=== PATIENT | male | born 1950 | race Caucasian/White ===

== ENCOUNTER 2021-06-06 16:30 | Inpatient (IN) ==
[2021-06-06] MEDS ORDERED: Naloxone 0.4 MG/ML INJ IVP PRN (19:36)
[2021-06-06] MEDS ORDERED: D5% in Water 1,000 ML IVC PRN (19:38)
[2021-06-06] MEDS ORDERED: Dextrose 4 GM Chewable Tablets PO PRN ×2 (19:38)
[2021-06-06] MEDS ORDERED: *HR* Dextrose 50 % in Water (Syg) 50 ML SYRINGE IVP PRN (19:38)
[2021-06-06] MEDS: Ondansetron 4 MG/2 ML VIAL IVP PRN (22:21)
[2021-06-07] MEDS: Insulin LISPRO 300 UNITS/3 ML VIAL SUBQ SCH ×4 (01:14→16:49)
[2021-06-07 01:27] LABS: Albumin 2.8 g/dL (3.5-5.7); Albumin/Globulin Ratio 1.5 (1.1-2.2); Bilirubin,Total 0.4 mg/dL (0.3-1.0); Calcium 7.5 mg/dL (8.6-10.3); Globulin 1.9 g/dL (2.4-3.5); Potassium 4.2 mEq/L (3.5-5.1); Total Protein 4.7 g/dL (6.4-8.9)
[2021-06-07 01:32] LABS: Basophils % 0.2 %; Lymphocytes % 6.9 %
[2021-06-07 01:34] LABS: Basophils # 0.1 K/mcL (0.0-0.2); Hematocrit 41.5 % (37.5-50.1); Immature Granulocytes % 1.5 % (0-4); Lymphocytes # 2.2 K/mcL (0.6-4.6); Mean Corpuscular HGB Conc 33.7 g/dL (31.6-35.5); Mean Corpuscular Hemoglobin 25.7 pg (28.0-33.3); Mean Corpuscular Volume 76.1 fL (83.0-100.0); Monocytes # 2.1 K/mcL (0.0-1.3); Monocytes % 6.4 %; Platelet Count 587 K/mcL (140-400); Red Blood Count 5.45 M/mcL (4.19-5.50); Red Cell Distribution Width 18.7 % (11.5-14.5)
[2021-06-07 01:39] LABS: Neutrophils # 27.5 K/mcL (1.6-8.9); White Blood Count 32.3 K/mcL (4.3-11.1)
[2021-06-07 02:03] LABS: INR 1.1; Prothrombin Time 11.7 Seconds (9.4-12.1)
[2021-06-07 02:06] LABS: Activated Partial Thrombo Time 25.6 Seconds (26.0-36.0)
[2021-06-07 02:39] LABS: Bilirubin,Urine Negative (Negative); Blood,Urine Moderate (Negative); Clarity,Urine Turbid (Clear); Color,Urine Yellow (Yellow); Glucose,Urine (UA) Normal (Normal); Hyaline Casts,Urine Many per lpf (None Seen); Ketones,Urine Negative (Negative); Leukocyte Esterase,Urine Large (Negative); Mucus,Urine Few per lpf (None-Few); Nitrite,Urine Negative (Negative); PH,Urine 7.5 pH Units (5.0-8.0); Protein,Urine 70 mg/dL (Neg-Trace); RBC,Urine 15-30 per hpf (0-3); Specific Gravity,Urine 1.024 (1.010-1.025); Squamous Epithelial Cell,Urine Few per hpf (None-Few); Urobilinogen,Urine Normal (Normal); WBC,Urine 50-100 per hpf (0-3)
[2021-06-07 03:06] LABS: Platelet Estimate Increased (Normal)
[2021-06-07 03:07] LABS: Anisocytosis 1+ (Not Present)
[2021-06-07 04:44] LABS: Sodium, Urine 12.9 mEq/L
[2021-06-07 04:57] LABS: Protein/Creatinine Ratio,Urine 0.54 mg/mg (0.00-0.20)
[2021-06-07 05:23] LABS: Basophils % 0.2 %; Hemoglobin 14.1 g/dL (12.9-16.9); Monocytes % 6.7 %
[2021-06-07 05:25] LABS: Basophils # 0.1 K/mcL (0.0-0.2); Hematocrit 41.6 % (37.5-50.1); Immature Granulocytes % 1.1 % (0-4); Lymphocytes # 2.7 K/mcL (0.6-4.6); Lymphocytes % 8.4 %; Mean Corpuscular HGB Conc 33.9 g/dL (31.6-35.5); Mean Corpuscular Hemoglobin 25.5 pg (28.0-33.3); Mean Corpuscular Volume 75.4 fL (83.0-100.0); Mean Platelet Volume 10.1 fL (9.4-12.4); Monocytes # 2.1 K/mcL (0.0-1.3); Neutrophils # 26.6 K/mcL (1.6-8.9); Platelet Count 607 K/mcL (140-400); Red Blood Count 5.52 M/mcL (4.19-5.50); Red Cell Distribution Width 18.6 % (11.5-14.5); Segmented Neutrophils % 83.6 %
[2021-06-07 05:35] LABS: White Blood Count 31.8 K/mcL (4.3-11.1)
[2021-06-07 05:52] LABS: Calcium 7.9 mg/dL (8.6-10.3); Potassium 4.2 mEq/L (3.5-5.1)
[2021-06-07] MEDS: Pantoprazole 40 MG VIAL IVP SCH ×2 (06:16→17:24)
[2021-06-07] MEDS: Ondansetron 4 MG/2 ML VIAL IVP PRN ×3 (06:21→23:27)
[2021-06-07 06:45] LABS: Anisocytosis 1+ (Not Present); Platelet Estimate Increased (Normal)
[2021-06-07] MEDS ORDERED: 0.9 % Sodium Chloride 1,000 ML IVC SCH ×2 (08:00→18:24)
[2021-06-07 13:40] LABS: Potassium 4.1 mEq/L (3.5-5.1)
[2021-06-07] MEDS: MetroNIDAZOLE 500 MG/100 ML 500 MG/100 ML BAG IVPB SCH ×2 (16:05→23:27)
[2021-06-07 16:19] LABS: Calcium 7.8 mg/dL (8.6-10.3); Potassium 4.3 mEq/L (3.5-5.1)
[2021-06-07 16:28] LABS: Hemoglobin 15.5 g/dL (12.9-16.9)
[2021-06-07] MEDS: Sucralfate 1 GM TABLET PO SCH (20:23)
[2021-06-07] MEDS: Budesonide/Formoterol 160/4.5 1 PUFF INH IH SCH (20:42)
[2021-06-07 21:16] LABS: Calcium 7.5 mg/dL (8.6-10.3); Potassium 4.3 mEq/L (3.5-5.1)
[2021-06-08 00:59] LABS: Mean Corpuscular HGB Conc 34.5 g/dL (31.6-35.5); Mean Corpuscular Hemoglobin 25.9 pg (28.0-33.3); Mean Platelet Volume 9.6 fL (9.4-12.4)
[2021-06-08 01:00] LABS: Hematocrit 44.3 % (37.5-50.1); Hemoglobin 15.3 g/dL (12.9-16.9); Nucleated Red Blood Cells 0.1 /100 WBC (0); Platelet Count 559 K/mcL (140-400); Red Blood Count 5.91 M/mcL (4.19-5.50)
[2021-06-08 01:05] LABS: Prothrombin Time 11.5 Seconds (9.4-12.1)
[2021-06-08 01:10] LABS: White Blood Count 36.3 K/mcL (4.3-11.1)
[2021-06-08 01:18] LABS: Calcium 7.6 mg/dL (8.6-10.3); Magnesium 2.1 mg/dL (1.6-2.6); Phosphorous 5.4 mg/dL (2.7-4.5)
[2021-06-08 01:33] LABS: Hypersegmented Neutrophils Present (Not Present); Lymphocytes # 3.6 K/mcL (0.6-4.6); Monocytes # 2.9 K/mcL (0.0-1.3); Neutrophils # 29.8 K/mcL (1.6-8.9)
[2021-06-08 01:34] LABS: Large Platelets Present (Not Present)
[2021-06-08 01:35] LABS: Platelet Estimate Increased (Normal)
[2021-06-08] MEDS ORDERED: 0.9 % Sodium Chloride 1,000 ML IVC SCH (02:57)
[2021-06-08] MEDS: Pantoprazole 40 MG VIAL IVP SCH ×2 (05:33→18:50)
[2021-06-08] MEDS: Budesonide/Formoterol 160/4.5 1 PUFF INH IH SCH ×2 (07:27→19:49)
[2021-06-08] MEDS: Ondansetron 4 MG/2 ML VIAL IVP PRN ×2 (07:38→20:12)
[2021-06-08] MEDS: Sucralfate 1 GM TABLET PO SCH ×2 (07:38→20:12)
[2021-06-08] MEDS: MetroNIDAZOLE 500 MG/100 ML 500 MG/100 ML BAG IVPB SCH ×3 (07:38→23:50)
[2021-06-08] MEDS: Insulin LISPRO 300 UNITS/3 ML VIAL SUBQ SCH ×3 (07:39→16:22)
[2021-06-08 10:41] LABS: Calcium 7.7 mg/dL (8.6-10.3); Potassium 4.2 mEq/L (3.5-5.1)
[2021-06-08 14:55] LABS: Calcium 7.7 mg/dL (8.6-10.3); Potassium 4.4 mEq/L (3.5-5.1)
[2021-06-08 16:31] LABS: Uric Acid 11.8 mg/dL (2.3-7.6)
[2021-06-08 20:33] LABS: Calcium 7.7 mg/dL (8.6-10.3); Potassium 4.4 mEq/L (3.5-5.1)
[2021-06-08 23:21] LABS: Calcium 7.5 mg/dL (8.6-10.3); Potassium 4.5 mEq/L (3.5-5.1)
[2021-06-09] MEDS: Albumin 25% 25gram/100mL 25 GM/100 ML IV.SOLN IVPB SCH ×4 (00:56→21:33)
[2021-06-09] MEDS ORDERED: Prochlorperazine 10 MG/2 ML VIAL IVP ONE (03:05)
[2021-06-09 05:29] LABS: Mean Corpuscular HGB Conc 34.2 g/dL (31.6-35.5); Mean Platelet Volume 9.7 fL (9.4-12.4); Monocytes % 7.6 %; Nucleated Red Blood Cells 0.1 /100 WBC (0)
[2021-06-09 05:31] LABS: Basophils # 0.1 K/mcL (0.0-0.2); Basophils % 0.2 %; Hemoglobin 16.4 g/dL (12.9-16.9); Immature Granulocytes % 3.5 % (0-4); Lymphocytes # 3.4 K/mcL (0.6-4.6); Lymphocytes % 7.6 %; Mean Corpuscular Hemoglobin 25.9 pg (28.0-33.3); Mean Corpuscular Volume 75.9 fL (83.0-100.0); Monocytes # 3.4 K/mcL (0.0-1.3); Platelet Count 529 K/mcL (140-400); Red Blood Count 6.32 M/mcL (4.19-5.50); Segmented Neutrophils % 81.1 %
[2021-06-09] MEDS: Pantoprazole 40 MG VIAL IVP SCH ×2 (05:35→17:53)
[2021-06-09 05:41] LABS: White Blood Count 44.4 K/mcL (4.3-11.1)
[2021-06-09 06:38] LABS: Platelet Estimate Increased (Normal)
[2021-06-09 06:44] LABS: Complement C3 72 mg/dL (87-200)
[2021-06-09] MEDS: Budesonide/Formoterol 160/4.5 1 PUFF INH IH SCH ×2 (07:57→20:50)
[2021-06-09] MEDS: Insulin LISPRO 300 UNITS/3 ML VIAL SUBQ SCH ×3 (08:15→16:36)
[2021-06-09] MEDS: Sucralfate 1 GM TABLET PO SCH ×2 (10:17→21:33)
[2021-06-09] MEDS: Cefepime HCl 2,000 MG in 0.9 % Sodium Chloride 10 ML IVP SCH (10:17)
[2021-06-09] MEDS: MetroNIDAZOLE 500 MG/100 ML 500 MG/100 ML BAG IVPB SCH ×3 (10:18→21:34)
[2021-06-09 10:24] LABS: Magnesium 2.1 mg/dL (1.6-2.6); Phosphorous 7.8 mg/dL (2.7-4.5)
[2021-06-09 10:30] LABS: Calcium 7.8 mg/dL (8.6-10.3); Potassium 4.7 mEq/L (3.5-5.1)
[2021-06-09] MEDS ORDERED: Sodium Bicarbonate 75 MEQ in 0.45 % Sodium Chloride 1,000 ML IVC SCH (10:45)
[2021-06-09 12:24] LABS: Thyroid Stimulating Hormone 1.368 mcIU/mL (0.340-5.600)
[2021-06-09] MEDS ORDERED: Isovue-370 500 ML BOTTLE IVP ONE (13:16)
[2021-06-09 16:17] LABS: Adenovirus F 40/41 PCR Not detected (Not detect); Astrovirus PCR Not detected (Not detect); C.difficile Toxin A/B Gene PCR Not detected (Not detect); Campylobacter by PCR Not detected (Not detect); Cryptosporidium by PCR Not detected (Not detect); Cyclospora cayetanensis PCR Not detected (Not detect); Entamoeba histolytica PCR Not detected (Not detect); Enteroaggregative E.coli(EAEC) Not detected (Not detect); Enteropathogenic E.coli(EPEC) Not detected (Not detect); Enterotoxigenic E.coli (ETEC) Not detected (Not detect); Norovirus GI/GII PCR Not detected (Not detect); Plesiomonas shigelloides PCR Not detected (Not detect); Rotavirus A PCR Not detected (Not detect); Salmonella PCR Not detected (Not detect); Sapovirus PCR Not detected (Not detect); Shig/EnteroinvasiveE coli EIEC Not detected (Not detect); Shigalike tox-prod E coli STEC Not detected (Not detect); Vibrio PCR Not detected (Not detect); Vibrio cholerae PCR Not detected (Not detect); Yersinia enterocolitica PCR Not detected (Not detect)
[2021-06-09 16:22] LABS: Appearance of Peritoneal Fl CLEAR (Clear); RBC,Peritoneal Fluid 2000 RBC/mcL
[2021-06-09 16:27] LABS: Giardia lamblia PCR DETECTED (Not detect)
[2021-06-09] MEDS: Insulin DETEMIR 100 UNIT/ML X5UNITS SUBQ SCH (16:36)
[2021-06-09 17:02] LABS: Potassium 4.6 mEq/L (3.5-5.1)
[2021-06-09 17:46] LABS: Calcium 7.5 mg/dL (8.6-10.3); Potassium 4.5 mEq/L (3.5-5.1)
[2021-06-09] MEDS: Sodium Bicarbonate 75 MEQ in 0.45 % Sodium Chloride 1,000 ML IVC SCH (17:54)
[2021-06-09 18:26] LABS: Basophils,Peritoneal Fluid 0 %; Eosinophils,Peritoneal Fluid 0 %
[2021-06-09 19:11] LABS: Hepatitis B Surface Antibody < 3.10 mIU/mL
[2021-06-09 19:21] LABS: Hepatitis B Surface Antigen Nonreactive (Nonreactive)
[2021-06-09 19:50] LABS: Hepatitis B Core IgM Nonreactive (Nonreactive); Hepatitis C Virus Antibody Nonreactive (Nonreactive)
[2021-06-09 22:17] LABS: Calcium 7.6 mg/dL (8.6-10.3); Potassium 4.5 mEq/L (3.5-5.1)
[2021-06-10 01:30] LABS: Calcium 7.6 mg/dL (8.6-10.3); Potassium 4.3 mEq/L (3.5-5.1)
[2021-06-10] MEDS: Sodium Bicarbonate 75 MEQ in 0.45 % Sodium Chloride 1,000 ML IVC SCH ×2 (03:19→13:30)
[2021-06-10] MEDS: Albumin 25% 25gram/100mL 25 GM/100 ML IV.SOLN IVPB SCH ×3 (05:03→21:28)
[2021-06-10] MEDS: Pantoprazole 40 MG VIAL IVP SCH ×2 (05:03→16:57)
[2021-06-10] MEDS: MetroNIDAZOLE 500 MG/100 ML 500 MG/100 ML BAG IVPB SCH ×3 (05:04→21:27)
[2021-06-10 05:35] LABS: Basophils # 0.2 K/mcL (0.0-0.2); Basophils % 0.4 %; Hematocrit 37.2 % (37.5-50.1); Immature Granulocytes % 2.8 % (0-4); Lymphocytes # 3.1 K/mcL (0.6-4.6); Mean Corpuscular HGB Conc 34.9 g/dL (31.6-35.5); Mean Corpuscular Hemoglobin 25.9 pg (28.0-33.3); Mean Corpuscular Volume 74.3 fL (83.0-100.0); Mean Platelet Volume 9.9 fL (9.4-12.4); Monocytes # 3.8 K/mcL (0.0-1.3); Monocytes % 8.7 %; Nucleated Red Blood Cells 0.1 /100 WBC (0); Platelet Count 438 K/mcL (140-400); Red Blood Count 5.01 M/mcL (4.19-5.50); Red Cell Distribution Width 17.9 % (11.5-14.5); Segmented Neutrophils % 81.1 %
[2021-06-10 05:36] LABS: Neutrophils # 35.4 K/mcL (1.6-8.9)
[2021-06-10 05:39] LABS: White Blood Count 43.7 K/mcL (4.3-11.1)
[2021-06-10 05:54] LABS: Albumin 2.8 g/dL (3.5-5.7); Bilirubin,Direct 0.2 mg/dL (0.0-0.2); Bilirubin,Indirect 0.5 mg/dL (0.0-1.0); Bilirubin,Total 0.7 mg/dL (0.3-1.0); Globulin 1.4 g/dL (2.4-3.5); Total Protein 4.2 g/dL (6.4-8.9)
[2021-06-10 05:55] LABS: Calcium 7.8 mg/dL (8.6-10.3); Potassium 4.2 mEq/L (3.5-5.1)
[2021-06-10 06:14] LABS: Magnesium 2.1 mg/dL (1.6-2.6); Phosphorous 7.1 mg/dL (2.7-4.5)
[2021-06-10] MEDS: Budesonide/Formoterol 160/4.5 1 PUFF INH IH SCH ×2 (07:25→20:37)
[2021-06-10] MEDS: Cefepime HCl 2,000 MG in 0.9 % Sodium Chloride 10 ML IVP SCH (07:59)
[2021-06-10] MEDS: Insulin DETEMIR 100 UNIT/ML X5UNITS SUBQ SCH (07:59)
[2021-06-10] MEDS: Sucralfate 1 GM TABLET PO SCH ×2 (07:59→21:27)
[2021-06-10] MEDS: Insulin LISPRO 300 UNITS/3 ML VIAL SUBQ SCH ×3 (08:00→16:52)
[2021-06-10 10:16] LABS: Hemoglobin 12.5 g/dL (12.9-16.9)
[2021-06-10 10:53] LABS: Calcium 7.9 mg/dL (8.6-10.3); Potassium 4.2 mEq/L (3.5-5.1)
[2021-06-10 13:26] LABS: Hematocrit 35.3 % (37.5-50.1); Hemoglobin 12.6 g/dL (12.9-16.9)
[2021-06-10 14:03] LABS: Calcium 7.6 mg/dL (8.6-10.3); Potassium 4.1 mEq/L (3.5-5.1)
[2021-06-10 17:34] LABS: Calcium 7.9 mg/dL (8.6-10.3); Potassium 3.9 mEq/L (3.5-5.1)
[2021-06-10 22:12] LABS: Calcium 7.8 mg/dL (8.6-10.3)
[2021-06-11] MEDS: Ondansetron 4 MG/2 ML VIAL IVP PRN ×2 (00:56→21:47)
[2021-06-11] MEDS: MetroNIDAZOLE 500 MG/100 ML 500 MG/100 ML BAG IVPB SCH ×3 (04:18→21:46)
[2021-06-11] MEDS: Sodium Bicarbonate 75 MEQ in 0.45 % Sodium Chloride 1,000 ML IVC SCH ×3 (04:18→23:08)
[2021-06-11] MEDS: Albumin 25% 25gram/100mL 25 GM/100 ML IV.SOLN IVPB SCH ×3 (04:19→21:46)
[2021-06-11 04:45] LABS: Hemoglobin 11.9 g/dL (12.9-16.9); Mean Platelet Volume 9.9 fL (9.4-12.4); Platelet Count 389 K/mcL (140-400)
[2021-06-11 04:47] LABS: Hematocrit 33.8 % (37.5-50.1); Mean Corpuscular HGB Conc 35.2 g/dL (31.6-35.5); Mean Corpuscular Hemoglobin 26.4 pg (28.0-33.3); Mean Corpuscular Volume 75.1 fL (83.0-100.0); Red Cell Distribution Width 17.8 % (11.5-14.5)
[2021-06-11 04:56] LABS: White Blood Count 34.4 K/mcL (4.3-11.1)
[2021-06-11 05:00] LABS: Calcium 7.7 mg/dL (8.6-10.3); Potassium 3.9 mEq/L (3.5-5.1)
[2021-06-11 05:15] LABS: Eosinophils # 0.7 K/mcL (0.0-0.6); Lymphocytes # 2.8 K/mcL (0.6-4.6); Monocytes # 2.8 K/mcL (0.0-1.3); Neutrophils # 28.2 K/mcL (1.6-8.9)
[2021-06-11] MEDS: Pantoprazole 40 MG VIAL IVP SCH ×2 (06:39→16:56)
[2021-06-11] MEDS: Budesonide/Formoterol 160/4.5 1 PUFF INH IH SCH ×2 (07:41→20:30)
[2021-06-11] MEDS: Sucralfate 1 GM TABLET PO SCH ×2 (08:10→21:46)
[2021-06-11] MEDS: Cefepime HCl 2,000 MG in 0.9 % Sodium Chloride 10 ML IVP SCH (08:13)
[2021-06-11] MEDS: Insulin LISPRO 300 UNITS/3 ML VIAL SUBQ SCH ×3 (08:38→16:55)
[2021-06-11] MEDS: Insulin DETEMIR 100 UNIT/ML X5UNITS SUBQ SCH (08:38)
[2021-06-11 09:01] LABS: Phosphorous 5.7 mg/dL (2.7-4.5)
[2021-06-11 09:36] LABS: ANA IgG by ELISA NONE DETECTED (None Detected)
[2021-06-11 15:29] LABS: Hematocrit 31.6 % (37.5-50.1); Hemoglobin 11.1 g/dL (12.9-16.9)
[2021-06-11 15:39] LABS: Calcium 7.9 mg/dL (8.6-10.3)
[2021-06-12] MEDS: Pantoprazole 40 MG VIAL IVP SCH ×2 (05:23→17:09)
[2021-06-12] MEDS: MetroNIDAZOLE 500 MG/100 ML 500 MG/100 ML BAG IVPB SCH ×3 (05:24→21:56)
[2021-06-12] MEDS: Albumin 25% 25gram/100mL 25 GM/100 ML IV.SOLN IVPB SCH ×3 (05:24→21:57)
[2021-06-12 05:44] LABS: Basophils # 0.1 K/mcL (0.0-0.2); Basophils % 0.4 %; Eosinophils # 0.1 K/mcL (0.0-0.6); Eosinophils % 0.4 %; Hemoglobin 10.9 g/dL (12.9-16.9); Immature Granulocytes % 3.9 % (0-4); Lymphocytes # 2.1 K/mcL (0.6-4.6); Lymphocytes % 7.5 %; Mean Corpuscular HGB Conc 35.2 g/dL (31.6-35.5); Mean Corpuscular Hemoglobin 26.3 pg (28.0-33.3); Mean Corpuscular Volume 74.7 fL (83.0-100.0); Mean Platelet Volume 10.2 fL (9.4-12.4); Monocytes % 10.9 %; Platelet Count 377 K/mcL (140-400); Red Blood Count 4.15 M/mcL (4.19-5.50); Red Cell Distribution Width 18.1 % (11.5-14.5); Segmented Neutrophils % 76.9 %; White Blood Count 27.3 K/mcL (4.3-11.1)
[2021-06-12 06:07] LABS: Calcium 8.1 mg/dL (8.6-10.3); Potassium 3.7 mEq/L (3.5-5.1)
[2021-06-12] MEDS: Budesonide/Formoterol 160/4.5 1 PUFF INH IH SCH ×2 (07:33→20:35)
[2021-06-12] MEDS: Sucralfate 1 GM TABLET PO SCH ×2 (08:23→21:56)
[2021-06-12] MEDS: Insulin DETEMIR 100 UNIT/ML X5UNITS SUBQ SCH (08:23)
[2021-06-12] MEDS: Cefepime HCl 2,000 MG in 0.9 % Sodium Chloride 10 ML IVP SCH (08:24)
[2021-06-12] MEDS: Insulin LISPRO 300 UNITS/3 ML VIAL SUBQ SCH ×3 (08:24→17:10)
[2021-06-12] MEDS: Ondansetron 4 MG/2 ML VIAL IVP PRN ×2 (08:41→17:40)
[2021-06-12 12:18] LABS: Fluid Source for Albumin PERITONEAL
[2021-06-12] MEDS: Sodium Bicarbonate 75 MEQ in 0.45 % Sodium Chloride 1,000 ML IVC SCH (13:05)
[2021-06-13] MEDS: MetroNIDAZOLE 500 MG/100 ML 500 MG/100 ML BAG IVPB SCH ×3 (05:04→20:47)
[2021-06-13] MEDS: Albumin 25% 25gram/100mL 25 GM/100 ML IV.SOLN IVPB SCH (05:05)
[2021-06-13] MEDS: Pantoprazole 40 MG VIAL IVP SCH ×2 (05:05→17:16)
[2021-06-13] MEDS: Budesonide/Formoterol 160/4.5 1 PUFF INH IH SCH ×2 (07:51→20:28)
[2021-06-13 07:52] LABS: Basophils # 0.1 K/mcL (0.0-0.2); Basophils % 0.3 %; Eosinophils # 0.2 K/mcL (0.0-0.6); Eosinophils % 1.1 %; Hematocrit 28.6 % (37.5-50.1); Hemoglobin 9.8 g/dL (12.9-16.9); Immature Granulocytes % 3.9 % (0-4); Lymphocytes # 1.9 K/mcL (0.6-4.6); Lymphocytes % 9.1 %; Mean Corpuscular HGB Conc 34.3 g/dL (31.6-35.5); Mean Corpuscular Hemoglobin 26.2 pg (28.0-33.3); Mean Corpuscular Volume 76.5 fL (83.0-100.0); Monocytes # 2.5 K/mcL (0.0-1.3); Monocytes % 12.2 %; Neutrophils # 15.1 K/mcL (1.6-8.9); Platelet Count 376 K/mcL (140-400); Red Blood Count 3.74 M/mcL (4.19-5.50); Red Cell Distribution Width 18.2 % (11.5-14.5); Segmented Neutrophils % 73.4 %; White Blood Count 20.6 K/mcL (4.3-11.1)
[2021-06-13 08:21] LABS: Calcium 8.2 mg/dL (8.6-10.3); Potassium 3.8 mEq/L (3.5-5.1)
[2021-06-13] MEDS: Insulin LISPRO 300 UNITS/3 ML VIAL SUBQ SCH ×3 (08:46→17:15)
[2021-06-13] MEDS: cefTRIAXone 2,000 MG in 0.9 % Sodium Chloride 20 ML IVP SCH (08:47)
[2021-06-13] MEDS: Insulin DETEMIR 100 UNIT/ML X5UNITS SUBQ SCH (08:47)
[2021-06-13] MEDS: Sucralfate 1 GM TABLET PO SCH ×2 (08:47→20:47)
[2021-06-13 09:47] LABS: Alpha 2 Globulin (PEP) 0.64 g/dL (0.48-1.05); Beta Globulin (PEP) 0.44 g/dL (0.48-1.10)
[2021-06-13 11:54] LABS: IFE Reflexed IFE Done; Immunoglobulin A 159 mg/dL (68-408); Immunoglobulin G 402 mg/dL (768-1632); Immunoglobulin M 44 mg/dL (35-263)
[2021-06-14 02:19] LABS: Basophils # 0.1 K/mcL (0.0-0.2); Basophils % 0.5 %; Eosinophils # 0.3 K/mcL (0.0-0.6); Eosinophils % 1.4 %; Hematocrit 31.5 % (37.5-50.1); Hemoglobin 10.6 g/dL (12.9-16.9); Immature Granulocytes % 4.2 % (0-4); Lymphocytes # 2.5 K/mcL (0.6-4.6); Lymphocytes % 11.1 %; Mean Corpuscular HGB Conc 33.7 g/dL (31.6-35.5); Mean Corpuscular Hemoglobin 26.2 pg (28.0-33.3); Mean Corpuscular Volume 77.8 fL (83.0-100.0); Mean Platelet Volume 10.4 fL (9.4-12.4); Monocytes # 2.9 K/mcL (0.0-1.3); Monocytes % 12.5 %; Platelet Count 418 K/mcL (140-400); Red Blood Count 4.05 M/mcL (4.19-5.50); Red Cell Distribution Width 18.7 % (11.5-14.5); Segmented Neutrophils % 70.3 %; White Blood Count 22.8 K/mcL (4.3-11.1)
[2021-06-14 02:33] LABS: Calcium 8.3 mg/dL (8.6-10.3); Potassium 3.9 mEq/L (3.5-5.1)
[2021-06-14] MEDS: Pantoprazole 40 MG VIAL IVP SCH ×2 (04:44→17:34)
[2021-06-14] MEDS: MetroNIDAZOLE 500 MG/100 ML 500 MG/100 ML BAG IVPB SCH ×3 (04:45→20:29)
[2021-06-14] MEDS: Budesonide/Formoterol 160/4.5 1 PUFF INH IH SCH ×2 (07:39→19:49)
[2021-06-14] MEDS: cefTRIAXone 2,000 MG in 0.9 % Sodium Chloride 20 ML IVP SCH (08:25)
[2021-06-14] MEDS: Insulin DETEMIR 100 UNIT/ML X5UNITS SUBQ SCH (08:25)
[2021-06-14] MEDS: Sucralfate 1 GM TABLET PO SCH ×2 (08:26→20:32)
[2021-06-14] MEDS: Insulin LISPRO 300 UNITS/3 ML VIAL SUBQ SCH ×3 (08:29→17:33)
[2021-06-15 03:07] VITALS: PULSE 79
[2021-06-15] MEDS: MetroNIDAZOLE 500 MG/100 ML 500 MG/100 ML BAG IVPB SCH ×2 (04:05→13:01)
[2021-06-15 04:52] LABS: Basophils # 0.1 K/mcL (0.0-0.2); Basophils % 0.4 %; Eosinophils # 0.4 K/mcL (0.0-0.6); Eosinophils % 2.1 %; Hematocrit 29.7 % (37.5-50.1); Hemoglobin 9.9 g/dL (12.9-16.9); Immature Granulocytes % 4.5 % (0-4); Lymphocytes # 2.3 K/mcL (0.6-4.6); Lymphocytes % 13.3 %; Mean Corpuscular HGB Conc 33.3 g/dL (31.6-35.5); Mean Corpuscular Hemoglobin 26.1 pg (28.0-33.3); Mean Corpuscular Volume 78.4 fL (83.0-100.0); Mean Platelet Volume 9.8 fL (9.4-12.4); Monocytes # 2.1 K/mcL (0.0-1.3); Monocytes % 12.1 %; Neutrophils # 11.8 K/mcL (1.6-8.9); Platelet Count 397 K/mcL (140-400); Red Blood Count 3.79 M/mcL (4.19-5.50); Red Cell Distribution Width 18.9 % (11.5-14.5); Segmented Neutrophils % 67.6 %; White Blood Count 17.5 K/mcL (4.3-11.1)
[2021-06-15 05:04] LABS: Alanine Aminotransferase 5 Units/L (7-52); Albumin 3.2 g/dL (3.5-5.7); Albumin/Globulin Ratio 1.8 (1.1-2.2); Alkaline Phosphatase 34 Units/L (34-104); Aspartate Amino Transferase 13 Units/L (13-39); BUN/Creatinine Ratio 39 (6-26); Bilirubin,Total 0.5 mg/dL (0.3-1.0); Blood Urea Nitrogen 53 mg/dL (8-23); Calcium 8.3 mg/dL (8.6-10.3); Carbon Dioxide 27 mEq/L (23-29); Chloride 98 mEq/L (98-107); Globulin 1.8 g/dL (2.4-3.5); Glucose 198 mg/dL (70-105); Osmolality,Calculated 294 (280-300); Potassium 3.9 mEq/L (3.5-5.1); Sodium 132 mEq/L (136-145); eGFR For African Americans > 60 (> 60); eGFR For Non-African Americans 52 (> 60)
[2021-06-15] MEDS: Pantoprazole 40 MG VIAL IVP SCH (05:11)
[2021-06-15] MEDS: Budesonide/Formoterol 160/4.5 1 PUFF INH IH SCH (07:32)
[2021-06-15] MEDS: Insulin LISPRO 300 UNITS/3 ML VIAL SUBQ SCH ×2 (08:21→12:54)
[2021-06-15] MEDS: Insulin DETEMIR 100 UNIT/ML X5UNITS SUBQ SCH (08:21)
[2021-06-15] MEDS: cefTRIAXone 2,000 MG in 0.9 % Sodium Chloride 20 ML IVP SCH (08:31)
[2021-06-15] MEDS: Sucralfate 1 GM TABLET PO SCH (08:32)
[2021-06-15 12:18] VITALS: BP 114/80; TEMP 97.8; O2SAT 93
== END 2021-06-15 15:34 | disposition home health service (06) | DRG 871 ==
LOC: 3ANU → SUATTDRO 19:10 → 3ANU 06-12 12:43
PROVIDERS: ADMIT Internal Medicine; ATTEND Family Medicine

== ENCOUNTER 2021-06-22 03:03 | Observation (INO) ==
[2021-06-22] MEDS ORDERED: Naloxone 0.4 MG/ML INJ IVP PRN (03:22)
[2021-06-22] MEDS ORDERED: Ondansetron 4 MG/2 ML VIAL IVP PRN (03:22)
[2021-06-22] MEDS ORDERED: Melatonin 3 MG TABLET PO PRN (03:22)
[2021-06-22 06:05] LABS: Basophils # 0.1 K/mcL (0.0-0.2); Basophils % 0.3 %; Eosinophils # 0.2 K/mcL (0.0-0.6); Eosinophils % 1.4 %; Hematocrit 27.1 % (37.5-50.1); Hemoglobin 8.7 g/dL (12.9-16.9); Immature Granulocytes % 0.6 % (0-4); Lymphocytes # 1.7 K/mcL (0.6-4.6); Mean Corpuscular HGB Conc 32.1 g/dL (31.6-35.5); Mean Corpuscular Hemoglobin 26.9 pg (28.0-33.3); Mean Corpuscular Volume 83.6 fL (83.0-100.0); Mean Platelet Volume 9.5 fL (9.4-12.4); Monocytes # 1.4 K/mcL (0.0-1.3); Monocytes % 9.9 %; Platelet Count 275 K/mcL (140-400); Red Blood Count 3.24 M/mcL (4.19-5.50); Red Cell Distribution Width 18.4 % (11.5-14.5); Segmented Neutrophils % 75.8 %; White Blood Count 14.5 K/mcL (4.3-11.1)
[2021-06-22 06:15] LABS: Albumin 2.8 g/dL (3.5-5.7); Albumin/Globulin Ratio 1.2 (1.1-2.2); Bilirubin,Total 0.5 mg/dL (0.3-1.0); Globulin 2.3 g/dL (2.4-3.5); Magnesium 1.8 mg/dL (1.6-2.6); Phosphorous 3.7 mg/dL (2.7-4.5); Potassium 3.8 mEq/L (3.5-5.1); Total Protein 5.1 g/dL (6.4-8.9)
[2021-06-22] MEDS ORDERED: Dextrose 4 GM Chewable Tablets PO PRN ×2 (06:36)
[2021-06-22] MEDS ORDERED: *HR* Dextrose 50 % in Water (Syg) 50 ML SYRINGE IVP PRN (06:36)
[2021-06-22] MEDS ORDERED: D5% in Water 1,000 ML IVC PRN (06:36)
[2021-06-22] MEDS ORDERED: 0.9 % Sodium Chloride 1,000 ML IVC SCH (06:45)
[2021-06-22] MEDS: Insulin LISPRO 300 UNITS/3 ML VIAL SUBQ SCH ×4 (09:03→20:45)
[2021-06-22] MEDS: cefTRIAXone 1,000 MG in 0.9 % Sodium Chloride 10 ML IVP SCH (11:50)
[2021-06-22] MEDS: 0.9 % Sodium Chloride 1,000 ML IVC SCH (15:51)
[2021-06-22] MEDS: *HR* Heparin 5,000 UNIT/ML VIAL SQ SCH (19:04)
[2021-06-22] MEDS: Sucralfate 1 GM TABLET PO SCH (20:05)
[2021-06-22] MEDS: Budesonide/Formoterol 160/4.5 1 PUFF INH IH SCH (20:08)
[2021-06-23] MEDS: *HR* Heparin 5,000 UNIT/ML VIAL SQ SCH ×2 (04:32→16:53)
[2021-06-23] MEDS: 0.9 % Sodium Chloride 1,000 ML IVC SCH (04:33)
[2021-06-23] MEDS: Acetaminophen 325 MG TABLET PO PRN ×3 (04:40→23:18)
[2021-06-23 06:53] LABS: Basophils # 0.1 K/mcL (0.0-0.2); Basophils % 0.7 %; Eosinophils # 0.2 K/mcL (0.0-0.6); Eosinophils % 2.1 %; Hematocrit 28.5 % (37.5-50.1); Hemoglobin 8.6 g/dL (12.9-16.9); Immature Granulocytes % 0.3 % (0-4); Lymphocytes # 1.7 K/mcL (0.6-4.6); Lymphocytes % 19.1 %; Mean Corpuscular HGB Conc 30.2 g/dL (31.6-35.5); Mean Corpuscular Hemoglobin 26.5 pg (28.0-33.3); Mean Platelet Volume 10.2 fL (9.4-12.4); Monocytes # 0.8 K/mcL (0.0-1.3); Monocytes % 9.4 %; Platelet Count 248 K/mcL (140-400); Red Blood Count 3.24 M/mcL (4.19-5.50); Red Cell Distribution Width 18.8 % (11.5-14.5); Segmented Neutrophils % 68.4 %; White Blood Count 8.7 K/mcL (4.3-11.1)
[2021-06-23 07:08] LABS: Calcium 7.9 mg/dL (8.6-10.3); Potassium 3.9 mEq/L (3.5-5.1)
[2021-06-23] MEDS: Insulin LISPRO 300 UNITS/3 ML VIAL SUBQ SCH ×4 (08:55→20:50)
[2021-06-23] MEDS: Sucralfate 1 GM TABLET PO SCH ×2 (09:12→19:46)
[2021-06-23] MEDS: cefTRIAXone 1,000 MG in 0.9 % Sodium Chloride 10 ML IVP SCH (09:13)
[2021-06-23] MEDS: Budesonide/Formoterol 160/4.5 1 PUFF INH IH SCH ×2 (09:53→20:00)
[2021-06-24] MEDS ORDERED: Morphine Sulfate 2 MG/ML SYRINGE IVP ONE (02:31)
[2021-06-24] MEDS ORDERED: *HR* HYDROmorphone (PF) 1 MG/ML SYRINGE IVP ONE (02:40)
[2021-06-24] MEDS: *HR* Heparin 5,000 UNIT/ML VIAL SQ SCH ×2 (04:44→17:22)
[2021-06-24 05:53] LABS: Calcium 7.7 mg/dL (8.6-10.3); Potassium 3.9 mEq/L (3.5-5.1)
[2021-06-24] MEDS: Budesonide/Formoterol 160/4.5 1 PUFF INH IH SCH ×2 (07:41→19:49)
[2021-06-24] MEDS: Sucralfate 1 GM TABLET PO SCH ×2 (08:13→19:37)
[2021-06-24] MEDS: Insulin LISPRO 300 UNITS/3 ML VIAL SUBQ SCH ×4 (08:13→20:45)
[2021-06-24] MEDS: cefTRIAXone 1,000 MG in 0.9 % Sodium Chloride 10 ML IVP SCH (08:14)
[2021-06-24] MEDS ORDERED: Furosemide 20 MG/2 ML VIAL IVP ONE (10:03)
[2021-06-25] MEDS: *HR* Heparin 5,000 UNIT/ML VIAL SQ SCH ×2 (05:15→17:49)
[2021-06-25 06:06] LABS: BUN/Creatinine Ratio 17 (6-26); Blood Urea Nitrogen 21 mg/dL (8-23); Carbon Dioxide 26 mEq/L (23-29); Chloride 104 mEq/L (98-107); Glucose 195 mg/dL (70-105); Osmolality,Calculated 280 (280-300); Potassium 4.2 mEq/L (3.5-5.1); Sodium 131 mEq/L (136-145); eGFR For African Americans > 60 (> 60); eGFR For Non-African Americans 57 (> 60)
[2021-06-25] MEDS: Sucralfate 1 GM TABLET PO SCH ×2 (08:04→19:53)
[2021-06-25] MEDS: cefTRIAXone 1,000 MG in 0.9 % Sodium Chloride 10 ML IVP SCH (08:04)
[2021-06-25] MEDS: Insulin LISPRO 300 UNITS/3 ML VIAL SUBQ SCH ×4 (08:05→20:11)
[2021-06-25] MEDS: Budesonide/Formoterol 160/4.5 1 PUFF INH IH SCH ×2 (09:58→20:16)
[2021-06-25] MEDS: Furosemide 40 MG TABLET PO SCH (12:46)
[2021-06-26] MEDS: *HR* Heparin 5,000 UNIT/ML VIAL SQ SCH ×2 (04:13→17:50)
[2021-06-26 05:47] LABS: BUN/Creatinine Ratio 19 (6-26); Blood Urea Nitrogen 20 mg/dL (8-23); Calcium 7.8 mg/dL (8.6-10.3); Carbon Dioxide 25 mEq/L (23-29); Chloride 103 mEq/L (98-107); Glucose 191 mg/dL (70-105); Osmolality,Calculated 284 (280-300); Sodium 133 mEq/L (136-145); eGFR For African Americans > 60 (> 60); eGFR For Non-African Americans > 60 (> 60)
[2021-06-26] MEDS: Furosemide 40 MG TABLET PO SCH (07:38)
[2021-06-26] MEDS: Sucralfate 1 GM TABLET PO SCH ×2 (07:38→19:33)
[2021-06-26] MEDS: Insulin LISPRO 300 UNITS/3 ML VIAL SUBQ SCH ×4 (07:39→19:35)
[2021-06-26] MEDS: Budesonide/Formoterol 160/4.5 1 PUFF INH IH SCH ×2 (07:47→21:47)
[2021-06-26] MEDS ORDERED: Cefdinir 300 MG CAPSULE PO SCH (09:00)
[2021-06-26 17:28] LABS: Influenza A PCR Negative (Negative); Influenza B PCR Negative (Negative); Resp. Syncytial Virus PCR Negative (Negative)
[2021-06-26 17:29] LABS: SARS-CoV-2 by PCR (In House) Negative (Negative)
[2021-06-26 19:17] VITALS: BP 151/66; PULSE 77; TEMP 98.6; O2SAT 94
[2021-06-26] MEDS ORDERED: Insulin DETEMIR 100 UNIT/ML X5UNITS SUBQ SCH (21:00)
== END 2021-06-26 21:40 ==
LOC: 3ANU → SUATTDRO 03:03
PROVIDERS: ADMIT Internal Medicine; ATTEND Internal Medicine